=== PATIENT | female | born 1950 | race Caucasian/White ===

== ENCOUNTER 2019-09-23 01:58 | Emergency (ER) | payer OTHER ==
[~2019-09-23] VITALS: Ht 157.5 cm; Wt 62.6 kg
[2019-09-23 02:13] VITALS: Ht 157.5 cm; Wt 62.6 kg
[2019-09-23 03:17] LABS: microscopic required? YES; urine erythrocyte 3+ (NEGATIVE)
[2019-09-23 03:38] LABS: BASOPHIL % 1.4 % (0-2); PLATELET COUNT 282 x10^3mcL (130-400); RED CELL DISTRIBUTION WIDTH 12.8 % (11.5-14.5)
[2019-09-23 03:56] LABS: CARBON DIOXIDE 26.1 mmol/L (21-32); CREATININE SERUM 2.1 mg/dL (0.6-1.0); POTASSIUM SERUM 4.6 mmol/L (3.5-5.1)
[2019-09-23 04:02] LABS: ALBUMIN 3.8 g/dL (3.4-5.0); BILIRUBIN TOTAL 0.5 mg/dL (0.20-1.00); TOTAL PROTEIN, SERUM 7.8 g/dL (6.4-8.2)
[2019-09-23 05:43] VITALS: BP 109/43
== END 2019-09-23 05:43 | disposition home or self-care (01) ==
LOC: ED 01:58
PROVIDERS: Emergency Medicine
DX: N39.0 Urinary tract infection, site not specified (principal); Z90.89 Acquired absence of other organs
CPT/HCPCS: J0696; J7030; J7060; Q0162

== ENCOUNTER 2020-06-07 06:56 | Emergency (ER) | payer OTHER ==
[~2020-06-07] VITALS: Ht 157.5 cm; Wt 65.8 kg
[2020-06-07 07:16] VITALS: BP 150/70; Ht 157.5 cm; Wt 65.8 kg
== END 2020-06-07 08:10 | disposition home or self-care (01) ==
LOC: ED 06:56
DX: M77.9 Enthesopathy, unspecified (principal); Z90.89 Acquired absence of other organs
CPT/HCPCS: A4570